=== PATIENT | male | born 1960 | race Caucasian/White ===

== ENCOUNTER 2018-08-12 11:31 | Inpatient (IN) | payer MEDICAID, OTHER ==
[~2018-08-12] VITALS: Ht 180.3 cm; Wt 125.4 kg
[2018-08-12] MEDS ORDERED: VALA10004 PO (11:48)
[2018-08-12] MEDS ORDERED: ASPI-496 PO (11:48)
[2018-08-12] MEDS ORDERED: ATOR20TA37 PO (11:48)
[2018-08-12] MEDS ORDERED: LISI-167 PO (11:48)
[2018-08-12] MEDS ORDERED: METO25TA35 PO ×2 (11:48)
--- NOTE | 2018-08-12 11:55 | NUR ---
pt to ed for intermittent palpitations x1 week. pt states decreased and changed doses of bp meds (metoprolol and lisinopril) in attempt to regulate palpitations. pt states this was successful and he had resumed normal doses today when palpitations began again, only more severe. pt states palitations are episodic, lasting only seconds. connected to all monitors. nsr 70s, vss on ra. call light within reach. no needs at this time. awaitin edmd assessment.
[2018-08-12] MEDS ORDERED: ASPIRIN 81 MG TABLET CHEW ONE (12:11)
--- NOTE | 2018-08-12 12:14 | NUR ---
edmd assessment complete. orders received. pt medicated per jul. labs drawn and sent. awaiting results at this time.
[2018-08-12 12:21] LABS: BASOPHILS # (AUTO) 0.03 x10^3/uL (0-0.1); BASOPHILS % (AUTO) 0 % (0-1); EOSINOPHILS # (AUTO) 0.26 x10^3/uL (0-0.4); EOSINOPHILS % (AUTO) 3 % (1-7); LYMPHOCYTES # (AUTO) 1.61 x10^3/uL (1-3.4); LYMPHOCYTES % (AUTO) 18 % (22-44); MD NO; MEAN CORPUSCULAR HEMOGLOBIN 29.8 pg (27.5-34.5); MEAN CORPUSCULAR HGB CONC 33.4 g/dL (33.2-36.2); MEAN CORPUSCULAR VOLUME 89.2 fL (81-97); MEAN PLATELET VOLUME 8.5 fL (7.4-10.4); MONOCYTES # (AUTO) 0.78 x10^3/uL (0.2-0.8); MONOCYTES % (AUTO) 9 % (2-9); NEUTROPHILS # (AUTO) 6.26 x10^3/uL (1.8-6.8); NEUTROPHILS % (AUTO) 70 % (42-75); PLATELET COUNT 298 x10^3/uL (130-400); RED BLOOD COUNT 5.08 x10^6/uL (4.38-5.82); RED CELL DISTRIBUTION WIDTH 13.4 % (9.4-14.8)
[2018-08-12] MEDS ORDERED: ASPIRIN 81 MG TABLET CHEW PO ONE (12:30)
[2018-08-12 12:31] LABS: ANION GAP 7 mmol/L (5-15); CALCIUM 9.3 mg/dL (8.5-10.1); CHLORIDE 108 mmol/L (98-107)
[2018-08-12 12:36] LABS: ALANINE AMINOTRANSFERASE 28 U/L (12-78); ALKALINE PHOSPHATASE 104 U/L (45-117); BILIRUBIN,TOTAL 0.5 mg/dL (0.2-1.0); CREATININE 0.86 mg/dL (0.7-1.3); TOTAL PROTEIN 7.4 g/dL (6.4-8.2); TROPONIN I < 0.015 ng/mL (0.000-0.045)
--- NOTE | 2018-08-12 12:56 | NUR ---
all resutls back at this time.chart upfor recheck. pt resting in room. no needs at this time. call light within reach.
--- NOTE | 2018-08-12 14:54 | NUR ---
pt resting in room. no needs at this time. [facility] of admit [facility] holds[facility]
--- NOTE | 2018-08-12 16:02 | NUR ---
pt resting in room. vss. no needs at this time. call light within reach. pt aware of admit and holds. awaiting bed assignment.
[2018-08-12] MEDS ORDERED: SODIUM CHLORIDE 0.9% 1,000 ML IV SCH (17:03)
[2018-08-12] MEDS ORDERED: hydrALAzine 20 MG/ML, 1ML IVPush PRN (17:30)
[2018-08-12] MEDS ORDERED: LABETALOL 5MG/ML, 20ML IVPush PRN (17:30)
[2018-08-12] MEDS ORDERED: POLYETHYLENE GLYCOL 17 GM PACKET PO PRN (17:30)
[2018-08-12] MEDS ORDERED: NITROGLYCERIN 0.4 MG BOTTLE (25 TABS) SL PRN (17:30)
[2018-08-12] MEDS ORDERED: BISACODYL 10 MG SUPP PR PRN (17:30)
[2018-08-12] MEDS ORDERED: ACETAMINOPHEN 325 MG TABLET PO PRN (17:30)
[2018-08-12] MEDS ORDERED: ONDANSETRON ODT 4 MG PO PRN (17:30)
[2018-08-12] MEDS ORDERED: ONDANSETRON 2MG/ML, 2ML IVPush PRN (17:30)
[2018-08-12] MEDS ORDERED: DOCUSATE 100 MG CAPSULE PO PRN (17:30)
[2018-08-12 17:47] LABS: TROPONIN I < 0.015 ng/mL (0.000-0.045)
--- NOTE | 2018-08-12 18:43 | NUR ---
PT RESTING IN ROOM. VSS. DIET TRAY ORDERED AT THIS TIME. NO OTHER NEEDS EXPRESSED. CALL LIGHT WITHIN REACH.
--- NOTE | 2018-08-12 18:46 | NUR ---
PT RESTING IN ROOM. VSS. DIET TRAY ORDERED AT THIS TIME. NO OTHER NEEDS EXPRESSED. CALL LIGHT WITHIN REACH.
[2018-08-12] MEDS ORDERED: ENOXAPARIN 40 MG/0.4 ML ONE (18:48)
[2018-08-12] MEDS: ENOXAPARIN 40 MG/0.4 ML SQ SCH (18:57)
--- NOTE | 2018-08-12 19:12 | NUR ---
report from luan pt in nad at this time assumed care of pt
[2018-08-12 21:16] VITALS: BP 125/79
[2018-08-12] MEDS: METOPROLOL TARTRATE 25 MG TABLET PO SCH (22:03)
[2018-08-12] MEDS: ATORVASTATIN 20 MG TABLET PO SCH (22:03)
[2018-08-13 00:24] LABS: TROPONIN I < 0.015 ng/mL (0.000-0.045)
[2018-08-13 00:27] VITALS: BP 110/72
[2018-08-13 06:32] LABS: BASOPHILS # (AUTO) 0.02 x10^3/uL (0-0.1); BASOPHILS % (AUTO) 0 % (0-1); EOSINOPHILS # (AUTO) 0.31 x10^3/uL (0-0.4); EOSINOPHILS % (AUTO) 4 % (1-7); LYMPHOCYTES % (AUTO) 20 % (22-44); MD NO; MEAN CORPUSCULAR HEMOGLOBIN 30.1 pg (27.5-34.5); MEAN CORPUSCULAR HGB CONC 33.8 g/dL (33.2-36.2); MEAN CORPUSCULAR VOLUME 89.1 fL (81-97); MEAN PLATELET VOLUME 8.8 fL (7.4-10.4); MONOCYTES # (AUTO) 0.94 x10^3/uL (0.2-0.8); MONOCYTES % (AUTO) 11 % (2-9); NEUTROPHILS # (AUTO) 5.59 x10^3/uL (1.8-6.8); NEUTROPHILS % (AUTO) 65 % (42-75); PLATELET COUNT 268 x10^3/uL (130-400); RED BLOOD COUNT 4.76 x10^6/uL (4.38-5.82); RED CELL DISTRIBUTION WIDTH 13.4 % (9.4-14.8)
[2018-08-13 06:43] LABS: CHLORIDE 111 mmol/L (98-107)
[2018-08-13 06:45] VITALS: BP 145/78
[2018-08-13 07:11] LABS: ANION GAP 6 mmol/L (5-15); CHOL/HDL RATIO 4.1; CHOLESTEROL, TOTAL 157 mg/dL (140-239); CREATININE 0.82 mg/dL (0.7-1.3); HDL CHOL % 24 % (26-37); HDL CHOLESTEROL (DIRECT) 38 mg/dL (40-60); LDL CHOLESTEROL,CALCULATED 95 mg/dL (54-169); LDL/HDL RATIO 2.5 (0.5-3.0); TRIGLYCERIDES 118 mg/dL (50-200); VLDL CHOLESTEROL 24 mg/dL (0-25)
[2018-08-13 08:11] LABS: HEMOGLOBIN A1C 5.6 % (4.2-6.3)
[2018-08-13] MEDS: METOPROLOL TARTRATE 25 MG TABLET PO SCH ×3 (08:14→21:23)
[2018-08-13] MEDS: ASPIRIN 81 MG TABLET EC PO SCH (08:49)
[2018-08-13 12:13] VITALS: BP 147/82
[2018-08-13 14:20] LABS: MICROSCOPIC NOT IND
[2018-08-13 14:23] LABS: CULTURE INDICATED? NO
[2018-08-13] MEDS ORDERED: MAALOX/HYOSCYAMINE/LIDOCAINE 45 ML BTL PO PRN (14:30)
[2018-08-13 16:30] VITALS: BP 142/80
[2018-08-13] MEDS: ENOXAPARIN 40 MG/0.4 ML SQ SCH (16:30)
[2018-08-13 19:56] VITALS: BP 150/77
[2018-08-13] MEDS: ATORVASTATIN 20 MG TABLET PO SCH (21:23)
[2018-08-14 01:24] VITALS: BP 137/79
[2018-08-14 07:00] VITALS: BP 127/78
[2018-08-14] MEDS: ASPIRIN 81 MG TABLET EC PO SCH (08:07)
[2018-08-14] MEDS: METOPROLOL TARTRATE 25 MG TABLET PO SCH ×3 (08:07→20:43)
[2018-08-14 12:03] VITALS: BP 142/82
[2018-08-14 13:00] VITALS: BP 137/79
[2018-08-14] MEDS: ENOXAPARIN 40 MG/0.4 ML SQ SCH (17:03)
[2018-08-14 18:44] VITALS: BP 145/77
[2018-08-14] MEDS: ATORVASTATIN 20 MG TABLET PO SCH (20:43)
[2018-08-15 00:03] VITALS: BP 146/77
[2018-08-15 08:00] VITALS: BP 133/90
[2018-08-15] MEDS ORDERED: MIDAZOLAM 1 MG/ML, 5ML ONE (09:18)
[2018-08-15] MEDS ORDERED: FENTANYL PF 100 MCG/2ML ONE (09:18)
[2018-08-15] MEDS ORDERED: HEPARIN 1,000 UNITS/ML, 10ML ONE (09:19)
[2018-08-15] MEDS ORDERED: BIVALIRUDIN 250 MG ONE (09:19)
[2018-08-15] MEDS ORDERED: VERAPAMIL 2.5 MG/ML, 2ML ONE (09:19)
[2018-08-15] MEDS ORDERED: NITROGLYCERIN 5 MG/ML, 10ML ONE (09:19)
[2018-08-15] MEDS ORDERED: TICAGRELOR 90 MG TABLET ONE (09:19)
[2018-08-15] MEDS ORDERED: LIDOCAINE-MPF 1%, 5ML ONE (09:19)
[2018-08-15] MEDS: ASPIRIN 81 MG TABLET EC PO SCH (10:34)
[2018-08-15] MEDS: METOPROLOL TARTRATE 25 MG TABLET PO SCH (10:35)
[2018-08-15] MEDS: SODIUM CHLORIDE 0.9% 1,000 ML IV SCH ×2 (11:03→17:39)
[2018-08-15] MEDS: TICAGRELOR 90 MG TABLET PO SCH ×2 (11:31→20:15)
[2018-08-15 14:00] VITALS: BP 127/69
[2018-08-15] MEDS ORDERED: METOPROLOL SUCCINATE 25 MG TAB.ER.24H PO SCH (18:00)
[2018-08-15] MEDS: ENOXAPARIN 40 MG/0.4 ML SQ SCH (18:17)
[2018-08-15] MEDS ORDERED: ATORVASTATIN 80 MG TABLET PO SCH (21:00)
[2018-08-15 21:10] VITALS: BP 138/87
[2018-08-16 02:00] VITALS: BP 129/80
[2018-08-16 04:37] LABS: ANION GAP 7 mmol/L (5-15); CALCIUM 9.1 mg/dL (8.5-10.1); CHLORIDE 107 mmol/L (98-107); CREATININE 0.89 mg/dL (0.7-1.3)
[2018-08-16 06:03] VITALS: BP 144/81
[2018-08-16] MEDS: TICAGRELOR 90 MG TABLET PO SCH (08:26)
[2018-08-16] MEDS: ASPIRIN 81 MG TABLET EC PO SCH (08:27)
[2018-08-16] MEDS ORDERED: METOPROLOL TARTRATE 25 MG TABLET PO SCH (09:00)
[2018-08-16] MEDS ORDERED: METO25TA91 PO (11:56)
[2018-08-16] MEDS ORDERED: CLOP75TA PO (11:56)
[2018-08-16] MEDS ORDERED: ATOR-2 PO (11:56)
== END 2018-08-16 13:00 | disposition home or self-care (01) | DRG 287 ==
LOC: ED 13:46 → EDIP 13:47 → ED 17:45 → 5SO 21:03 → DCLOUNGE 08-16 13:00
PROVIDERS: ADMIT Internal Medicine; ATTEND Internal Medicine
PROC: 4A023N7 Measurement of Cardiac Sampling and Pressure, Left Heart, Percutaneous Approach (ICD-10-PCS; principal; 2018-08-15)
PROC: B2111ZZ Fluoroscopy of Multiple Coronary Arteries using Low Osmolar Contrast (ICD-10-PCS; 2018-08-15)
PROC: B2151ZZ Fluoroscopy of Left Heart using Low Osmolar Contrast (ICD-10-PCS; 2018-08-15)
PROC: 02JA3ZZ Inspection of Heart, Percutaneous Approach (ICD-10-PCS; 2018-08-15)
DX: I25.110 Atherosclerotic heart disease of native coronary artery with unstable angina pectoris (principal); I35.8 Other nonrheumatic aortic valve disorders; F41.9 Anxiety disorder, unspecified; I10 Essential (primary) hypertension; E78.5 Hyperlipidemia, unspecified; E66.9 Obesity, unspecified; F12.90 Cannabis use, unspecified, uncomplicated; I25.82 Chronic total occlusion of coronary artery; Z87.891 Personal history of nicotine dependence; Z86.19 Personal history of other infectious and parasitic diseases; Z82.49 Family history of ischemic heart disease and other diseases of the circulatory system; Z88.8 Allergy status to other drugs, medicaments and biological substances; Z68.38 Body mass index [BMI] 38.0-38.9, adult; Z90.89 Acquired absence of other organs; Z95.818 Presence of other cardiac implants and grafts
CPT/HCPCS: 36415; 71045; 78452; 80048; 80053; 80061; 81003; 83036; 83735; 83880; 84443; 84484; 85025; 92920; 93005; 93017; 93306; 93458; 99156; 99157; C1769; C1894; G0378; J0583; J1644; J1650; J2250; J3010; 92928; A9502; C1887; C9898; J7030; Q9967